=== PATIENT | male | born 1990 | race Caucasian/White ===

== ENCOUNTER 2019-10-14 12:41 | Emergency (ER) | payer OTHER ==
--- NOTE | 2019-10-14 14:30 | ED Physician Documentation ---
History of Present Illness - Stated complaint Stated Complaint: CONGESTION - Chief complaint Chief Complaint: Resp - History obtained from History obtained from: Patient - History of Present Illness Timing: How many days ago (4) Pain level max: 0 Pain level now: 0 - Additonal information Additional information: 29-year-old male presents to the emergency department with mild cough for the past 3 to 4 days. Has rhinorrhea and congestion as well. No fever. No shortness of breath. No difficulty breathing. He is going to see his in approximately 2 weeks who is . He wants to make sure he is safe to travel. Nothing makes this better or worse. Review of Systems Ten Systems: 10 systems reviewed and negative Constitutional: denies: Fever, Chills Nose: reports: Rhinorrhea / runny nose, Congestion Cardiac: denies: Palpitations Respiratory: reports: Cough. denies: Wheezing GI: denies: Abdominal Pain, Nausea, Vomiting, Diarrhea Skin: denies: Rash Musculoskeletal: denies: Neck pain, Back pain Neurologic: denies: Headache PD PAST MEDICAL HISTORY - Past Medical History Past Medical History: No - Past Surgical History Past Surgical History: No - Allergies Allergies/Adverse Reactions: Allergies Allergy/AdvReac Type Severity Reaction Status Date / Time No Known Drug Allergies Allergy Verified 10/14/19 13:07 - Living Situation Living Situation: reports: With family Living Arrangement: reports: At home - Social History Does the pt smoke?: No Does the pt drink ETOH?: No Does the pt have substance abuse?: No - Family History Family history: reports: Non contributory - Immunizations Immunizations are current?: Yes PD ED PE NORMAL - Vitals Vital signs reviewed: Yes - General General: Alert and oriented X 3, No acute distress, Well developed/nourished - HEENT HEENT: PERRL, Ears normal, Moist mucous membranes, Pharynx benign, Other (Clear rhinorrhea) - Neck Neck: Supple, no meningeal sign - Cardiac Cardiac: RRR, Strong equal pulses - Respiratory Respiratory: No respiratory distress, Clear bilaterally - Abdomen Abdomen: Soft, Non tender, Non distended - Derm Derm: Warm and dry, No rash - Neuro Neuro: Alert and oriented X 3 - Psych Psych: Normal mood, Normal affect Results - Vitals Vitals: Vital Signs - 24 hr 10/14/19 13:02 Temperature 36.9 C Heart Rate 76 Respiratory 18 Rate Blood Pressure 151/70 H O2 Saturation 99 Oxygen O2 Source Room air PD MEDICAL DECISION MAKING - ED course Complexity details: considered differential, d/w patient ED course: Patient presents to the emergency department what appears to be a viral upper respiratory infection. He is well-appearing, nontoxic. Afebrile. No indication for coronavirus testing at this time. No evidence of pneumonia. No hypoxia. No difficulty breathing. We will continue supportive care and have him follow-up with his doctor. Patient counseled regarding signs and symptoms for which I believe and urgent re-evaluation would be necessary. Patient with good understanding of and agreement to plan and is comfortable going home at this time This document was made in part using voice recognition software. While efforts are made to proofread this document, sound alike and grammatical errors may occur. Departure - Departure Disposition: 01 Home, Self Care Clinical Impression: Upper respiratory tract infection Qualifiers: URI type: unspecified URI Qualified Code(s): J06.9 - Acute upper respiratory infection, unspecified Condition: Good Instructions: ED URI Viral Follow-Up: EDENILSON RAMIREZ [Primary Care Provider] - As Needed Comments: Return if you worsen. Follow-up with your doctor for further care. Drink plenty of fluids and rest.
[2019-10-14 15:00] VITALS: BP 145/93
== END 2019-10-14 14:59 | disposition home or self-care (01) ==
LOC: ED 12:41
DX: J06.9 Acute upper respiratory infection, unspecified (principal)
CPT/HCPCS: 99282; 99283

== ENCOUNTER 2019-11-28 13:25 | Emergency (ER) | payer OTHER ==
--- NOTE | 2019-11-28 13:45 | ED Physician Documentation ---
PD HPI CHEST PAIN - Stated complaint Stated Complaint: CHEST DISCOMFORT - Chief complaint Chief Complaint: Cardiac - History obtained from History obtained from: Patient - History of Present Illness Timing - onset: How many days ago (4) Timing - onset during: Rest Timing - duration: Days (4) Timing - details: Gradual onset, Still present Pain level max: 6 Pain level now: 4 Quality: Sharp, Other (burning) Location: Left chest Radiation: Neck Improved by: Rest Worsened by: Inspiration, Palpation, Other (sitting up) Associated symptoms: No: Shortness of air, Diaphoresis, Nausea, Vomiting, Feeling faint / dizzy, General Weakness, Palpitations, Cough Similar symptoms before: Has not had sx before Recently seen: Emergency Dept - Additional information Additional information: Previously well 29-year-old male has had a stent URI and he was seen in the emergency department for this and recovered. Over the past 4 days he has developed some pain in his left chest he feels there is some radiation this pain up into his neck some increase in the pain with breathing and palpation and the pain is not bad is persistent and he has a burning sensation periodically. He has a family history of coronary artery disease. He is come to the emergency department for evaluation. He has not had this happen to him previously Review of Systems Constitutional: denies: Fever, Chills, Myalgias, Fatigue Eyes: denies: Decreased vision Ears: denies: Ear pain Nose: denies: Rhinorrhea / runny nose, Congestion Throat: denies: Sore throat Cardiac: reports: Chest pain / pressure. denies: Palpitations, Pedal edema, Calf pain Respiratory: denies: Dyspnea, Cough GI: denies: Abdominal Pain, Nausea, Vomiting, Constipation, Diarrhea : denies: Dysuria, Frequency Skin: denies: Rash Musculoskeletal: denies: Neck pain, Back pain, Extremity pain PD PAST MEDICAL HISTORY - Past Medical History Cardiovascular: Hypertension Respiratory: None Neuro: None Endocrine/Autoimmune: None GI: None : None HEENT: None Psych: None Musculoskeletal: None Derm: None - Past Surgical History Past Surgical History: No - Present Medications Home Medications: Ambulatory Orders Medication Instructions Recorded Confirmed Lisinopril [Zestril] 20 mg PO DAILY 10/14/19 11/28/19 Cholecalciferol (Vitamin D3) 300 mcg PO DAILY 11/28/19 11/28/19 [Vitamin D3] Colchicine 0.6 mg PO BID #30 capsule 11/28/19 Mecobalamin [B12 Active] 3,500 mcg PO DAILY 11/28/19 11/28/19 - Allergies Allergies/Adverse Reactions: Allergies Allergy/AdvReac Type Severity Reaction Status Date / Time No Known Drug Allergies Allergy Verified 11/28/19 13:30 - Social History Does the pt smoke?: No Smoking Status: Current every day smoker Does the pt drink ETOH?: No Does the pt have substance abuse?: No - Immunizations Immunizations are current?: Yes PD ED PE NORMAL - Vitals Vital signs reviewed: Yes (Hypertensive) - General General: Alert and oriented X 3, No acute distress, Well developed/nourished - HEENT HEENT: Atraumatic, PERRL, EOMI - Neck Neck: Supple, no meningeal sign, No bony TTP - Cardiac Cardiac: RRR, Other (There is a friction rub present.) - Respiratory Respiratory: No respiratory distress, Clear bilaterally - Abdomen Abdomen: Soft, Non tender - Back Back: No CVA TTP, No spinal TTP - Derm Derm: Normal color, Warm and dry, No rash - Extremities Extremities: No deformity, No edema, No calf tenderness / cord - Neuro Neuro: Alert and oriented X 3, ruby developer 2-12 intact, No motor deficit, No sensory deficit, Normal speech Eye Opening: Spontaneous Motor: Obeys Commands Verbal: Oriented GCS Score: 15 - Psych Psych: Normal mood, Normal affect Results - Vitals Vitals: Vital Signs - 24 hr 11/28/19 11/28/19 11/28/19 13:31 13:34 13:46 Temperature 36.6 C 36.6 C Heart Rate 91 90 Respiratory 17 17 Rate Blood Pressure 141/78 H 141/78 H Blood Pressure 141/78 H [Left] O2 Saturation 98 100 11/28/19 15:14 Temperature 36.6 C Heart Rate 75 Respiratory 20 Rate Blood Pressure 137/77 H Blood Pressure [Left] O2 Saturation 99 Oxygen O2 Source Room air - EKG (time done) 1345 Rate: Rate (enter#) (80) Rhythm: NSR Intervals: Wide QRS (non-specific) Ischemia: Other (Mild ST elevations in all leads consistent with acute pericarditis.) Compare to prior EKG: Old EKG unavailable Computer interpretation: Agree with computer - Labs Labs: Laboratory Tests 11/28/19 11/28/19 11/28/19 13:52 13:52 13:52 WBC 5.8 RBC 4.75 Hgb 14.4 Hct 43.1 MCV 90.7 MCH 30.3 MCHC 33.4 RDW 12.7 Plt Count 243 MPV 9.8 Neut # (Auto) 3.8 Lymph # (Auto) 1.5 Lyon # (Auto) 0.4 Eos # (Auto) 0.1 Baso # (Auto) 0.0 Absolute Nucleated RBC 0.00 Nucleated RBC % 0.0 ESR Sodium 140 Potassium 3.9 Chloride 102 Carbon Dioxide 29 Anion Gap 9.0 BUN 18 Creatinine 0.9 Estimated GFR (MDRD) 100 Glucose 102 H Calcium 9.8 Total Bilirubin 1.3 H AST 43 H ALT 95 H Alkaline Phosphatase 70 Troponin I High Sens < 2.3 L C-Reactive Protein Total Protein 8.3 H Albumin 4.9 Globulin 3.4 Albumin/Globulin Ratio 1.4 Lipase 30 11/28/19 11/28/19 13:52 13:52 WBC RBC Hgb Hct MCV MCH MCHC RDW Plt Count MPV Neut # (Auto) Lymph # (Auto) Lyon # (Auto) Eos # (Auto) Baso # (Auto) Absolute Nucleated RBC Nucleated RBC % ESR 8 Sodium Potassium Chloride Carbon Dioxide Anion Gap BUN Creatinine Estimated GFR (MDRD) Glucose Calcium Total Bilirubin AST ALT Alkaline Phosphatase Troponin I High Sens C-Reactive Protein < 1.0 Total Protein Albumin Globulin Albumin/Globulin Ratio Lipase - Rads (name of study) chest Radiology: Prelim report reviewed (Impression: normal single view chest.), EMP read indepedently, See rad report Procedures - Bedside sono Bedside sono by EMP: With the use of bedside ultrasound the heart is imaged and there is a tiny pericardial effusion. There is no evidence of tamponade. PD MEDICAL DECISION MAKING - ED course Complexity details: reviewed results, re-evaluated patient, considered differential, d/w patient ED course: 29-year-old male with 4 days of chest pain pleuritic in nature has ST elevations throughout his electrocardiogram consistent with pericarditis he has a tiny pericardial effusion on bedside ultrasound is normal cardiac biomarkers and he has marked improvement with the use of IM Toradol.He is given a dose of dexamethasone as well we will place him on some ibuprofen and colchicine. I discussed the findings with the patient I have included instructions to reduce physical activity and to have his inflammatory markers rechecked for timing of discontinuation of the colchicine. Departure - Departure Disposition: 01 Home, Self Care Clinical Impression: Pericarditis Qualifiers: Pericarditis type: unspecified type Chronicity: acute Qualified Code(s): I30.9 - Acute pericarditis, unspecified Condition: Stable Instructions: ED Chest Pain Pericarditis Follow-Up: EDENILSON RAMIREZ [Primary Care Provider] - Prescriptions: Colchicine 0.6 mg PO BID #30 capsule Comments: Today it appears you have some inflammation to the sac lining the outside of the heart. There is a tiny pericardial effusion. We have drawn some inflammatory biomarkers and these will guide the length of time he might need therapy. Typically the symptoms may resolve rapidly and there is a chance of recurrence. For this reason we are providing you with a prescription for a medication called colchicine. The recommendation is to take this until your biomarkers have come back to normal and you were symptom-free. There is also recommendation that you reduce your level of physical activity until your you are symptom-free. In addition the recommendation is to take ibuprofen 600 mg 3 times per day. Make certain you take this with food as it irritates the lining of everyone stomach if you develop abdominal pain with the ibuprofen discontinue. Discharge Date/Time: 11/28/19 15:29
[2019-11-28 14:00] LABS: BASOPHILS % (AUTO) 0.5 %; EOSINOPHILS # (AUTO) 0.1 10^3/uL (0.0-0.7); EOSINOPHILS % (AUTO) 2.2 %; HGB - HEMOGLOBIN 14.4 g/dL (14.0-18.0); LYMPHOCYTES # (AUTO) 1.5 10^3/uL (1.5-3.5); LYMPHOCYTES % (AUTO) 25.4 %; MEAN CORPUSCULAR HEMOGLOBIN 30.3 pg (27.0-31.0); MEAN CORPUSCULAR HGB CONC 33.4 g/dL (32.0-36.0); MEAN CORPUSCULAR VOLUME 90.7 fL (80.0-94.0); MEAN PLATELET VOLUME 9.8 fL (7.4-11.4); MONOCYTES # (AUTO) 0.4 10^3/uL (0.0-1.0); MONOCYTES % (AUTO) 6.2 %; NEUTROPHILS # (AUTO) 3.8 10^3/uL (1.5-6.6); NEUTROPHILS % (AUTO) 65.4 %; PLT - PLATELET COUNT 243 10^3/uL (130-450); RED BLOOD COUNT 4.75 10^6/uL (4.70-6.10); RED CELL DISTRIBUTION WIDTH 12.7 % (12.0-15.0); WHITE BLOOD COUNT 5.8 x10^3/uL (4.8-10.8)
--- NOTE | 2019-11-28 14:02 | XRAY Report ---
Reason: chest pain Procedure Date: 11/28/2019 Accession Number: [id number] / [id number] Procedure: XR - Chest 1 View X-Ray CPT Code: 05223 Final Report FULL RESULT: EXAM: CHEST RADIOGRAPHY EXAM DATE: 11/28/2019 01:54 PM. CLINICAL HISTORY: Chest pain. COMPARISON: None. TECHNIQUE: 1 view. FINDINGS: Lungs/Pleura: No focal opacities evident. No pleural effusion. No pneumothorax. Mediastinum: No active disease. Other: None. IMPRESSION: Normal single view chest. RADIA
[2019-11-28 14:13] LABS: ALBUMIN 4.9 g/dL (3.2-5.5); ALBUMIN/GLOBULIN RATIO 1.4 (1.0-2.2); BILIRUBIN,TOTAL 1.3 mg/dL (0.2-1.0); CALCIUM 9.8 mg/dL (8.5-10.3); CREATININE 0.9 mg/dL (0.6-1.2); TOTAL PROTEIN 8.3 g/dL (6.7-8.2)
[2019-11-28] MEDS: DEXAMETHASONE 10 MG/ML VIAL PO STA (14:15)
[2019-11-28] MEDS: KETOROLAC 60 MG/2 ML VIAL IM STA (14:15)
[2019-11-28] MEDS: CHERRY SYRUP 10 ML UDC PO ONE (14:15)
[2019-11-28 15:14] VITALS: BP 137/77
== END 2019-11-28 15:29 | disposition home or self-care (01) ==
LOC: ED 13:25
DX: I31.9 Disease of pericardium, unspecified (principal); I10 Essential (primary) hypertension; F17.200 Nicotine dependence, unspecified, uncomplicated
CPT/HCPCS: 36415; 71045; 80053; 83690; 84484; 85025; 85651; 86140; 93005; 96372; 99284

== ENCOUNTER 2020-12-28 18:24 | Emergency (ER) | payer OTHER ==
--- NOTE | 2020-12-28 18:50 | ED Physician Documentation ---
PD HPI FOCAL NEURO - Stated complaint Stated Complaint: NOSE BLEEDS - Chief complaint Chief Complaint: Neuro - History obtained from History obtained from: Patient - Additional information Additional information: 4 days of inexplicable fatigue in the setting of normal sleep and no illness. Today developed a right-sided nosebleed and developed mild right facial numbness after that without motor or other complaints. No history of easy bleeding or bruising. Review of Systems Constitutional: denies: Fever, Chills Eyes: reports: Photophobia (Mild photophobia) Nose: reports: Epistaxis. denies: Rhinorrhea / runny nose, Congestion PD PAST MEDICAL HISTORY - Past Medical History Cardiovascular: Hypertension Respiratory: None Neuro: None Endocrine/Autoimmune: None GI: None : None HEENT: None Psych: None Musculoskeletal: None Derm: None - Past Surgical History Past Surgical History: No - Present Medications Home Medications: Ambulatory Orders Medication Instructions Recorded Confirmed Sertraline [Zoloft] 50 mg PO DAILY 12/28/20 12/28/20 - Allergies Allergies/Adverse Reactions: Allergies Allergy/AdvReac Type Severity Reaction Status Date / Time No Known Drug Allergies Allergy Verified 12/28/20 18:34 - Social History Does the pt smoke?: No Smoking Status: Current every day smoker Does the pt drink ETOH?: No Does the pt have substance abuse?: No - Immunizations Immunizations are current?: Yes PD ED PE NORMAL - Vitals Vital signs reviewed: Yes - General General: Alert and oriented X 3, No acute distress - HEENT HEENT: PERRL, EOMI, Other (No active epistaxis. Mild decrease sensation compared to the left over the right face especially the forehead and midface more so than the jaw.) - Neck Neck: Supple, no meningeal sign, No bony TTP - Neuro Neuro: Alert and oriented X 3, No motor deficit, Normal speech Eye Opening: Spontaneous Motor: Obeys Commands Verbal: Oriented GCS Score: 15 - Psych Psych: Normal mood, Normal affect Results - Vitals Vitals: Vital Signs - 24 hr 12/28/20 12/28/20 18:30 20:40 Temperature 36.8 C 37.3 C Heart Rate 65 62 Respiratory 16 18 Rate Blood Pressure 147/93 H 141/89 H O2 Saturation 98 99 Oxygen O2 Source Room air - Labs Labs: Laboratory Tests 12/28/20 12/28/20 18:54 18:54 WBC 7.0 RBC 4.84 Hgb 14.5 Hct 43.4 MCV 89.7 MCH 30.0 MCHC 33.4 RDW 12.6 Plt Count 256 MPV 9.4 Neut # (Auto) 4.0 Lymph # (Auto) 2.3 [place]yer # (Auto) 0.4 Eos # (Auto) 0.2 Baso # (Auto) 0.0 Absolute Nucleated RBC 0.00 Nucleated RBC % 0.0 Sodium 138 Potassium 3.8 Chloride 101 Carbon Dioxide 27 Anion Gap 10.0 BUN 19 Creatinine 1.0 Estimated GFR (MDRD) 88 L Glucose 108 H Calcium 9.5 PD MEDICAL DECISION MAKING - ED course ED course: 30yo M with R epistxis prior to R facial paresthesias. O/W/ exam and W/U neg Departure - Departure Disposition: 01 Home, Self Care Clinical Impression: Migraine, Paresthesia, Epistaxis not due to trauma Headache Qualifiers: Headache type: unspecified Headache chronicity pattern: acute headache Intractability: not intractable Qualified Code(s): R51.9 - Headache, unspecified Condition: Good Record reviewed to determine appropriate education?: Yes Instructions: ED Nosebleed, ED Headache Migraine Comments: CAT scan and labs are normal. Treat your migraine as you would normally. Return for new or worsening symptoms. Follow-up with your primary care physician, next available appointment. Discharge Date/Time: 12/28/20 20:42
[2020-12-28 19:01] LABS: BASOPHILS % (AUTO) 0.6 %; EOSINOPHILS # (AUTO) 0.2 10^3/uL (0.0-0.7); HCT - HEMATOCRIT 43.4 % (42.0-52.0); HGB - HEMOGLOBIN 14.5 g/dL (14.0-18.0); LYMPHOCYTES # (AUTO) 2.3 10^3/uL (1.5-3.5); LYMPHOCYTES % (AUTO) 33.4 %; MEAN CORPUSCULAR HGB CONC 33.4 g/dL (32.0-36.0); MEAN CORPUSCULAR VOLUME 89.7 fL (80.0-94.0); MEAN PLATELET VOLUME 9.4 fL (7.4-11.4); MONOCYTES # (AUTO) 0.4 10^3/uL (0.0-1.0); MONOCYTES % (AUTO) 5.3 %; NEUTROPHILS % (AUTO) 57.4 %; PLT - PLATELET COUNT 256 10^3/uL (130-450); RED BLOOD COUNT 4.84 10^6/uL (4.70-6.10); RED CELL DISTRIBUTION WIDTH 12.6 % (12.0-15.0)
[2020-12-28 19:08] LABS: CALCIUM 9.5 mg/dL (8.5-10.3); POTASSIUM 3.8 mmol/L (3.5-5.0)
--- OUTSIDE RECORDS SUMMARY | 2020-12-28 19:16 | EXTERNAL MEDICAL SUMMARY RPT | Continuity of Care Document ---
:1990 Demographics Phone Unavailable Preferred Language Unknown Marital Status Unknown Anabaptist Affiliation Unknown Race Unknown Ethnic Group Unknown Author Organization [facility] Address [address] [phone] Phone Allergies Encounters Medications Problems Results
--- NOTE | 2020-12-28 20:25 | CT Report ---
PROCEDURE: HEAD WO INDICATIONS: headache TECHNIQUE: Noncontrast 4.5 mm thick angled axial sections acquired from the foramen magnum to the vertex. For r adiation dose reduction, the following was used: automated exposure control, adjustment of mA and/or kV according to patient size. COMPARISON: None. FINDINGS: Image quality: Excellent. CSF spaces: Basal cisterns are patent. No extra-axial fluid collections. Ventricles are normal in size and shape. Brain: No midline shift. No intracranial masses or hemorrhage. George-white matter interface is norm al. Skull and face: Calvarium and visualized facial bones are intact, without suspicious lesions. Sinuses: Mucosal thickening in the left maxillary sinus. Visualized sinuses and mastoids are otherwi se clear. IMPRESSION: No acute intracranial abnormality. Reviewed by: Edson Cao MD on 12/28/2020 8:24 PM PDT Approved by: Edson Cao MD on 12/28/2020 8:24 PM PDT Station ID: [id number]
[2020-12-28 20:40] VITALS: BP 141/89
== END 2020-12-28 20:42 | disposition home or self-care (01) ==
LOC: ED 18:24
DX: G43.909 Migraine, unspecified, not intractable, without status migrainosus (principal); R20.2 Paresthesia of skin; R04.0 Epistaxis; R53.83 Other fatigue; I10 Essential (primary) hypertension; F17.200 Nicotine dependence, unspecified, uncomplicated
CPT/HCPCS: 36415; 80048; 85025; 99283; 99284

== ENCOUNTER 2021-02-16 19:30 | Emergency (ER) | payer OTHER ==
--- NOTE | 2021-02-16 19:49 | ED Physician Documentation ---
PD HPI CHEST PAIN - Stated complaint Stated Complaint: CP - Chief complaint Chief Complaint: Cardiac - History obtained from History obtained from: Patient - History of Present Illness Timing - onset: How many hours ago (1) Timing - onset during: Rest Timing - duration: Hours (1) Timing - details: Abrupt onset Pain level max: 6 Pain level now: 4 Quality: Sharp Location: Right chest Radiation: Right upper extremity Improved by: Rest. No: Oxygen, Nitro, ASA, Antacids, Other medication, Nothing Worsened by: Movement, Palpation Associated symptoms: No: Shortness of air, Diaphoresis, Nausea, Vomiting, Feeling faint / dizzy, General Weakness, Palpitations, Cough Recently seen: Not recently seen - Additional information Additional information: Patient is a 30-year-old male who presents with a 1 hour right-sided chest pain tonight. He states that it is sharp and stabbing. Worse with movement, better with rest. He states had similar symptoms about a year ago and was diagnosed with pericarditis at that time. No recent illness. Review of Systems Ten Systems: 10 systems reviewed and negative Constitutional: denies: Fever, Chills Throat: denies: Sore throat Cardiac: denies: Palpitations Respiratory: denies: Dyspnea, Cough GI: denies: Nausea, Vomiting, Diarrhea Skin: denies: Rash Musculoskeletal: denies: Neck pain, Back pain Neurologic: denies: Headache PD PAST MEDICAL HISTORY - Past Medical History Cardiovascular: Hypertension Respiratory: None Neuro: None Endocrine/Autoimmune: None GI: None : None HEENT: None Psych: None Musculoskeletal: None Derm: None - Past Surgical History Past Surgical History: No - Present Medications Home Medications: Ambulatory Orders Medication Instructions Recorded Confirmed Sertraline [Zoloft] 100 mg PO DAILY 12/28/20 02/16/21 Ibuprofen [Motrin] 800 mg PO Q8H PRN #30 tablet 02/16/21 - Allergies Allergies/Adverse Reactions: Allergies Allergy/AdvReac Type Severity Reaction Status Date / Time No Known Drug Allergies Allergy Verified 02/16/21 19:34 - Social History Does the pt smoke?: No Smoking Status: Current every day smoker Does the pt drink ETOH?: No Does the pt have substance abuse?: No - Immunizations Immunizations are current?: Yes PD ED PE NORMAL - Vitals Vital signs reviewed: Yes - General General: Alert and oriented X 3, No acute distress, Well developed/nourished - HEENT HEENT: PERRL, Moist mucous membranes - Neck Neck: Supple, no meningeal sign - Cardiac Cardiac: RRR, No murmur, No gallop, No rub, Strong equal pulses - Respiratory Respiratory: No respiratory distress, Clear bilaterally - Abdomen Abdomen: Soft, Non tender, Non distended - Back Back: No spinal TTP - Derm Derm: Warm and dry - Extremities Extremities: No edema, No calf tenderness / cord - Neuro Neuro: Alert and oriented X 3 - Psych Psych: Normal mood, Normal affect Results - Vitals Vitals: Vital Signs - 24 hr 02/16/21 02/16/21 02/16/21 19:34 20:01 20:35 Temperature 36.5 C 36.5 C Heart Rate 72 72 70 Respiratory 16 16 19 Rate Blood Pressure 167/82 H 167/82 H 138/87 H O2 Saturation 98 98 99 02/16/21 21:29 Temperature 36.5 C Heart Rate 65 Respiratory 16 Rate Blood Pressure 120/78 O2 Saturation 99 Oxygen O2 Source Room air - EKG (time done) 1940 Rate: Rate (enter#) (70) Rhythm: NSR Fortson: Normal Intervals: Normal FL QRS: Normal Ischemia: ST elevation c/w repol Compare to prior EKG: Changed from prior EKG (T wave upright in V1, otherwise normal) - Labs Labs: Laboratory Tests 02/16/21 02/16/21 02/16/21 19:58 19:58 19:58 WBC 6.0 RBC 4.48 L Hgb 13.7 L Hct 40.9 L MCV 91.3 MCH 30.6 MCHC 33.5 RDW 13.1 Plt Count 237 MPV 9.8 Neut # (Auto) 2.9 Lymph # (Auto) 2.5 Hinds # (Auto) 0.4 Eos # (Auto) 0.3 Baso # (Auto) 0.0 Absolute Nucleated RBC 0.00 Nucleated RBC % 0.0 Sodium 140 Potassium 4.4 Chloride 103 Carbon Dioxide 28 Anion Gap 9.0 BUN 9 Creatinine 0.9 Estimated GFR (MDRD) 100 Glucose 91 Calcium 9.4 Total Bilirubin 0.8 AST 33 ALT 37 Alkaline Phosphatase 59 Troponin I High Sens 3.6 Total Protein 7.1 Albumin 4.7 Globulin 2.4 Albumin/Globulin Ratio 2.0 Lipase 32 - Rads (name of study) Chest x-ray Radiology: Final report received, EMP read contemporaneously, See rad report (no acute findings) PD MEDICAL DECISION MAKING - ED course Complexity details: reviewed old records, reviewed results, re-evaluated patient, considered differential (No ST elevation NE, no aortic dissection, no PE, no tension pneumothorax, no aortic aneurysm), d/w patient ED course: Patient with right-sided sharp chest pain. Resolved with Toradol. Feels better. EKG is mostly unchanged from prior other than the T waves now upright in V1. No ischemic changes. No history of young cardiac disease. No risk factors for pulmonary embolus. No tachycardia, hypoxia here. Nonpleuritic. Unclear etiology. We will have him follow-up with his doctor for further care. Patient counseled regarding signs and symptoms for which I believe and urgent re-evaluation would be necessary. Patient with good understanding of and agreement to plan and is comfortable going home at this time This document was made in part using voice recognition software. While efforts are made to proofread this document, sound alike and grammatical errors may occur. Departure - Departure Disposition: 01 Home, Self Care Clinical Impression: Chest pain Qualifiers: Chest pain type: unspecified Qualified Code(s): R07.9 - Chest pain, unspecified Condition: Good Instructions: ED Chest Pain Atypical Unkn Cause Follow-Up: ROSLYN HENLEY DO [Primary Care Provider] - Within 1 week Prescriptions: Ibuprofen [Motrin] 800 mg PO Q8H PRN #30 tablet PRN Reason: PAIN &/OR FEVER Comments: The cause of your symptoms is unclear today. It is recommended that you have an echocardiogram with your doctor. They may want to schedule you for a cardiac stress test as well. We we will trial you on anti-inflammatories and see if this improves your symptoms. Return if you worsen. Discharge Date/Time: 02/16/21 21:28
[2021-02-16 20:03] LABS: BASOPHILS % (AUTO) 0.7 %; EOSINOPHILS # (AUTO) 0.3 10^3/uL (0.0-0.7); EOSINOPHILS % (AUTO) 4.2 %; HCT - HEMATOCRIT 40.9 % (42.0-52.0); HGB - HEMOGLOBIN 13.7 g/dL (14.0-18.0); LYMPHOCYTES # (AUTO) 2.5 10^3/uL (1.5-3.5); LYMPHOCYTES % (AUTO) 41.1 %; MEAN CORPUSCULAR HEMOGLOBIN 30.6 pg (27.0-31.0); MEAN CORPUSCULAR HGB CONC 33.5 g/dL (32.0-36.0); MEAN CORPUSCULAR VOLUME 91.3 fL (80.0-94.0); MEAN PLATELET VOLUME 9.8 fL (7.4-11.4); MONOCYTES # (AUTO) 0.4 10^3/uL (0.0-1.0); MONOCYTES % (AUTO) 6.3 %; NEUTROPHILS # (AUTO) 2.9 10^3/uL (1.5-6.6); NEUTROPHILS % (AUTO) 47.5 %; PLT - PLATELET COUNT 237 10^3/uL (130-450); RED BLOOD COUNT 4.48 10^6/uL (4.70-6.10); RED CELL DISTRIBUTION WIDTH 13.1 % (12.0-15.0)
[2021-02-16 20:23] LABS: ALBUMIN 4.7 g/dL (3.2-5.5); BILIRUBIN,TOTAL 0.8 mg/dL (0.2-1.0); CALCIUM 9.4 mg/dL (8.5-10.3); CREATININE 0.9 mg/dL (0.6-1.2); POTASSIUM 4.4 mmol/L (3.5-5.0); TOTAL PROTEIN 7.1 g/dL (6.7-8.2)
[2021-02-16] MEDS ORDERED: KETOROLAC 30 MG/ML VIAL IVP STA (20:29)
--- NOTE | 2021-02-16 20:38 | XRAY Report ---
PROCEDURE: Chest 1 View X-Ray INDICATIONS: Chest Pain TECHNIQUE: One view of the chest was acquired. COMPARISON: None FINDINGS: Surgical changes and devices: None. Lungs and pleura: No pleural effusions or pneumothorax. Lungs are clear. Mediastinum: Mediastinal contours appear normal. Heart size is normal. Bones and chest wall: No suspicious bony lesions. Overlying soft tissues appear unremarkable. IMPRESSION: Normal chest. Reviewed by: Cleo Aquino MD on 02/16/2021 8:37 PM PDT Approved by: Cleo Aquino MD on 02/16/2021 8:37 PM PDT Station ID: [id number]
[2021-02-16 21:30] VITALS: BP 120/78
== END 2021-02-16 21:28 | disposition home or self-care (01) ==
LOC: ED 19:30
DX: R07.9 Chest pain, unspecified (principal); I10 Essential (primary) hypertension; F17.200 Nicotine dependence, unspecified, uncomplicated
CPT/HCPCS: 36415; 80053; 83690; 84484; 85025; 93005; 96374; 99284